=== PATIENT | male | born 1960 | race Hispanic/Latino ===

== ENCOUNTER → 2022-08-04 | Day surgery (SDC) | payer OTHER ==
[~2022-08-04] MED LIST: CRESTOR10 MG PO; LACTATED RINGER'S 1,000 ML ONE; PROPOFOL IV EMULSION 10 MG/ML 20 ML VIAL IV ONE; SERTRALINE HCL50 MG PO
[2022-08-04 12:15] VITALS: BP 119/80
== END | disposition home or self-care (01) ==
LOC: OR 07:57
PROVIDERS: ATTEND Internal Medicine Gastroenterology
DX: Z12.11 Encounter for screening for malignant neoplasm of colon (principal); K63.5 Polyp of colon; K64.8 Other hemorrhoids; Z71.3 Dietary counseling and surveillance; E78.00 Pure hypercholesterolemia, unspecified; F41.9 Anxiety disorder, unspecified; Z01.810 Encounter for preprocedural cardiovascular examination; Z79.899 Other long term (current) drug therapy; Z68.25 Body mass index [BMI] 25.0-25.9, adult
CPT/HCPCS: 45380; 45385; 93005; J2704; J7121; 45378